=== PATIENT | male | born 1960 | race American Indian/Alaskan Native ===

== ENCOUNTER 2017-06-29 07:28 | Emergency (ER) | payer MEDICAID ==
[2017-06-29 07:39] VITALS: BP 116/77; PULSE 65; RESP 19; TEMP 97.5; O2SAT 100
--- NOTE | 2017-06-29 08:06 | C.PDOC ---
History Of Present Illness 57 y/o male with PMHx of HTN [place] [facility] [place] and [place]. Patient denies suicidal ideation, homicidal ideation or any physical complaints at this time. Chief Complaint (Nursing): Substance Abuse History Per: Patient History/Exam Limitations: no limitations Onset/Duration Of Symptoms: Days Current Symptoms Are (Timing): Still Present Suicide/Self Injury Attempted (Context): None Modifying Factor(s): Alcohol Past Medical History Reviewed: Historical Data, Nursing Documentation, Vital Signs Vital Signs: Last Vital Signs Temp 97.5 F L 06/29/17 07:33 Pulse 65 06/29/17 07:33 Resp 19 06/29/17 07:33 BP 116/77 06/29/17 07:33 Pulse Ox 100 06/29/17 08:21 - Medical History PMH: HTN, Kidney Stones Surgical History: No Surg Hx Family History: States: No Known Family Hx - Social History Hx Alcohol Use: Yes Hx Substance Use: Yes - Immunization History Hx Tetanus Toxoid Vaccination: Yes Hx Influenza Vaccination: No Hx Pneumococcal Vaccination: No Review Of Systems Constitutional: Negative for: Fever, Chills Gastrointestinal: Negative for: Nausea, Vomiting Psych: Negative for: Anxiety, Withdrawal Physical Exam - Physical Exam Appears: Non-toxic, No Acute Distress Skin: Warm, Dry, No Rash Head: Atraumatic, Normacephalic Eye(s): bilateral: Normal Inspection Oral Mucosa: Moist Neck: Normal ROM, Supple Cardiovascular: Rhythm Regular Respiratory: Normal Breath Sounds, No Rales, No Rhonchi, No Wheezing Gastrointestinal/Abdominal: Soft, No Tenderness, No Guarding, No Rebound Extremity: Normal ROM, Capillary Refill (<2 seconds) Neurological/Psych: Oriented x3, Normal Speech, Normal Cognition ED Course And Treatment O2 Sat by Pulse Oximetry: 100 (Ra) Pulse Ox Interpretation: Normal Progress Note: d/w crisis no detox bed available. Patient d/c with outpatient services detox list and information on detox procedure. Disposition - Disposition Disposition: HOME/ ROUTINE Disposition Time: 08:05 Condition: STABLE Additional Instructions: Follow up with your PMD, call Detox for pre-screen procedure within 1-2 days. Return to ED if feel worse. 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 - Scribe Statement The provider has reviewed the documentation as recorded by the Scribe () Kyle Silva All medical record entries made by the Scribe were at my direction and personally dictated by me. I have reviewed the chart and agree that the record accurately reflects my personal performance of the history, physical exam, medical decision making, and the department course for this patient. I have also personally directed, reviewed, and agree with the discharge instructions and disposition.
== END 2017-06-29 08:10 | disposition home or self-care (01) ==
LOC: C.ER 07:28
DX: F10.20 Alcohol dependence, uncomplicated (principal); F19.20 Other psychoactive substance dependence, uncomplicated; I10 Essential (primary) hypertension